=== PATIENT | male | born 1990 | race Asian ===

== ENCOUNTER 2016-08-22 07:05 | Emergency (ER) | payer MEDICAID, OTHER ==
[~2016-08-22] VITALS: Ht 160 cm; Wt 61.2 kg
--- NOTE | 2016-08-22 07:05 | NUR ---
25M BIBA FROM HOME C/O FULL ARREST; PER [facility], SYSTEMS SOFTWARE MANAGER STATES AT AROUND 0430 TODAY PT NOTED W/ RESPIRATORY DISTRESS AND STARTED HAVING DIFFICULTY BREATHING; PER [facility], FAMILY STATES PT HAS BEEN NOTED W/ PHELGM, DIARRHEA, AND ON ANTIBIOTICS; AT 0630 FAMILY CALLED 911, AND STARTED COMPRESSIONS; [facility] STATES PT WAS "IN ASYSTOLE THE WHOLE TIME"; PUPILS FIXED/DILATED, NO RESPIRATIONS NOTED, SKIN MOTTLED AND COOL; PT NOTED W/ TRACH, G-TUBE, AND IO ESTABLISHED IN FIELD TO LEFT LEG ON ARRIVAL; HX: SEIZURES PER [facility] DEPT.
--- NOTE | 2016-08-22 07:05 | NUR ---
0704- PT BIBA ALS, FULL ARREST. TAKEN TO BED 3
--- NOTE | 2016-08-22 07:05 | NUR ---
0704- Dr. Alfaro evaluating patient at bedside. RT at bedside.
[2016-08-22 07:10] VITALS: BP 103/80
--- NOTE | 2016-08-22 07:10 | NUR ---
PT PRONOUNCED BY DR. KEN
--- NOTE | 2016-08-22 07:13 | NUR ---
NO SPONTANEOUS RESPIRATIONS, ASYSTOLE ON ARRIVAL
--- NOTE | 2016-08-22 07:49 | NUR ---
BOTH [facility] AND [employer] CALLED AT THIS TIME. ALSO ATTENDING DR CHRISTY BURGER WAS PAGED.
[2016-08-22] MEDS ORDERED: PRON INH (07:58)
--- NOTE | 2016-08-22 08:56 | NUR ---
PT TAKEN TO PRIVATE ROOM 126 [facility]IA [place] PER FAMILY'S REQUEST, ACCOMPANIED BY RN SHAYY/EMT LÓPEZ, AND PT'S SISTER DWIGHT AT THIS TIME.
--- NOTE | 2016-08-22 09:12 | NUR ---
[facility] GIV[facility] INFORMATION ON [facility] PENDING DISPOSITION.
[2016-08-22 10:38] VITALS: BP 0/0
--- NOTE | 2016-08-22 15:18 | NUR ---
PATIENT BODY PICKED UP BY MORTUARY, FORMS COMPLETED.
== END 2016-08-22 07:10 | disposition expired ==
LOC: MED 07:05
DX: I46.9 Cardiac arrest, cause unspecified (principal)
CPT/HCPCS: 92950; 99285